=== PATIENT | male | born 1990 | race American Indian/Alaskan Native ===

== ENCOUNTER 2016-09-07 07:51 | Emergency (ER) | payer OTHER ==
[2016-09-07 08:01] VITALS: BMI 27.3
[2016-09-07] MEDS ORDERED: Emtricitabine-Tenofovir 200 mg-300 mg Tab PO STA (08:02)
--- NOTE | 2016-09-07 08:10 | ED PDOC ---
Arrival/HPI - General Chief Complaint: Needle Stick Time Seen by Provider: 09/07/16 07:55 Historian: Patient - History of Present Illness Narrative History of Present Illness (Text): 09/07/16 08:06 A 25 year old male, who denies any past medical history, was sent into the emergency department by [employer] [facility] for further evaluation concerning needlestick injury. 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 Patient denies any fever, chills, nausea, vomiting, diarrhea, abdominal pain, chest pain, shortness of breath or any other complaints. Time/Duration: Other (This morning at 05:30) Quality: Other Context: Work Past Medical History - Provider Review Nursing Documentation Reviewed: Yes Family/Social History - Physician Review Nursing Documentation Reviewed: Yes Family/Social History: No Known Family HX Allergies/Home Meds Allergies/Adverse Reactions: Allergies shellfish derived Allergy (Verified 09/07/16 08:01) ANAPHYLAXIS Review of Systems - Physician Review All systems were reviewed & negative as marked: Yes - Review of Systems Constitutional: absent: Fevers, Night Sweats Respiratory: absent: SOB Cardiovascular: absent: Chest Pain Gastrointestinal: absent: Abdominal Pain, Diarrhea, Nausea, Vomiting Musculoskeletal: Other (needlestick injury to right index finger) Physical Exam Vital Signs Reviewed: Yes Vital Signs Temp Pulse Resp BP Pulse Ox 09/07/16 08:02 98 F 72 18 116/85 98 Temperature: Afebrile Blood Pressure: Normal Pulse: Regular Respiratory Rate: Normal Appearance: Positive for: Well-Appearing, Non-Toxic, Comfortable Pain Distress: None Mental Status: Positive for: Alert and Oriented X 3 - Systems Exam Head: Present: Atraumatic, Normocephalic Pupils: Present: PERRL Extroacular Muscles: Present: EOMI Conjunctiva: Present: Normal Upper Extremity: Present: NORMAL PULSES, Neurovascularly Intact, Other (small abrasion on right index finger, no active bleeding). No: Cyanosis, Edema, Temperature Abnormalties Neurological: Present: GCS=15, CN II-XII Intact, Speech Normal Skin: Present: Warm, Dry, Normal Color. No: Rashes Psychiatric: Present: Alert, Oriented x 3, Normal Insight, Normal Concentration Medical Decision Making ED Course and Treatment: 09/07/16 08:06 Impression: A 25 year old male sent in for a needlestick evaluation. Plan: -- Labs -- Urinalysis -- Truvada and Isentress -- Reassess and disposition Progress Notes: - Lab Interpretations Lab Results: 09/07/16 08:00 09/07/16 08:00 Lab Results 09/07/16 08:00: HIV-1 Ab Rapid Screen Non reactive 09/07/16 08:00: RPR Titer 1:2 H, RPR Reactive H 09/07/16 08:00: Hep Bs Antibody Positive 09/07/16 08:00: Hepatitis A IgM Ab Negative, Hep Bs Antigen Negative, Hep B Core IgM Ab Negative, Hepatitis C Antibody Negative 09/07/16 08:00: Sodium 141, Potassium 4.1, Chloride 103, Carbon Dioxide 26, Anion Gap 16, BUN 13, Creatinine 1.0, Est GFR ( Amer) > 60, Est GFR (Non- Af Amer) > 60, Random Glucose 88, Calcium 9.8, Total Bilirubin 0.7, AST 41, ALT 48, Alkaline Phosphatase 76, Total Protein 8.6 H, Albumin 4.9 H, Globulin 3.7, Albumin/Globulin Ratio 1.3, Amylase 97 09/07/16 08:00: WBC 7.2, RBC 5.31, Hgb 14.9, Hct 43.8, MCV 82.5, MCH 28.1, MCHC 34.0, RDW 12.6, Plt Count 238, MPV 9.5, Gran % 55.0, Lymph % (Auto) 32.7, [place] % (Auto) 8.4 H, Eos % (Auto) 3.6, Baso % (Auto) 0.3, Gran # 3.98, Lymph # 2.4, [place] # 0.6, Eos # 0.3, Baso # 0.02 - Medication Orders Current Medication Orders: Discontinued Medications Emtricitabine/Tenofovir (Truvada 200 Mg-300 Mg) 1 tab PO STAT STA Stop: 09/07/16 08:03 Last Admin: 09/07/16 08:36 Dose: 1 tab Raltegravir (Isentress) 400 mg PO STAT STA Stop: 09/07/16 08:05 Last Admin: 09/07/16 08:36 Dose: 400 mg - Scribe Statement The provider has reviewed the documentation as recorded by the Flory Shaw Provider Scribe Attestation: All medical record entries made by the Scribe were at my direction and personally dictated by me. I have reviewed the chart and agree that the record accurately reflects my personal performance of the history, physical exam, medical decision making, and the department course for this patient. I have also personally directed, reviewed, and agree with the discharge instructions and disposition. Disposition/Present on Arrival - Present on Arrival Any Indicators Present on Arrival: No - Disposition Have Diagnosis and Disposition been Completed?: Yes Diagnosis: Needle stick injury Disposition: HOME/ ROUTINE Disposition Time: 08:15 Condition: GOOD Discharge Instructions (ExitCare): Needle Stick Injuries (ED) Additional Instructions: Thank you for letting us take care of you today. Your provider was Dr. Gamboa. You were treated for a needle stick. The emergency medical care you received today was directed at your acute symptoms. If you were prescribed any medication, please fill it and take as directed. It may take several days for your symptoms to resolve. Return to the Emergency Department if your symptoms worsen, do not improve, or if you have any other problems. Please contact your doctor or call one of the physicians/clinics you have been referred to that are listed on the Patient Visit Information form that is included in your discharge packet. Bring any paperwork you were given at discharge with you along with any medications you are taking to your follow up visit. Our treatment cannot replace ongoing medical care by a primary care provider (PCP) outside of the emergency department. Thank you for allowing the [facility] team to be part of your care today. [facility] with [facility] tomorrow morning as instructed. Prescriptions: Emtricitabine/Tenofovir (Tdf) [Truvada 200 mg-300 mg Tablet] 1 each PO DAILY #3 tablet Raltegravir Potassium [Isentress] 400 mg PO BID #6 tab [facility] [[facility] Care Provider] - Follow up with primary
[2016-09-07 08:25] VITALS: BP 116/85; PULSE 72; RESP 18; TEMP 98; O2SAT 98
[2016-09-07 08:27] LABS: BASO # 0.02 K/mm3 (0.0-2.0); BASO % 0.3 % (0.0-3.0); EOS # 0.3 (0.0-0.7); EOS % 3.6 % (1.5-5.0); GRAN # 3.98 (1.4-6.5); HEMOGLOBIN 14.9 gm/dL (14.0-18.0); LYMPH # 2.4 (1.2-3.4); LYMPH % 32.7 % (22.0-35.0); MEAN CELL VOLUME 82.5 fL (80.0-105.0); MEAN CORPUSCULAR HEMOGLOBIN 28.1 pg (25.0-35.0); MEAN PLATELET VOLUME 9.5 fl (7.0-11.0); MONO # 0.6 (0.1-0.6); MONO % 8.4 % (1.0-6.0); PLATELET COUNT 238 10^3/uL (120.0-450.0); RBC 5.31 10^6/uL (3.5-6.1); RED CELL DISTRIBUTION WIDTH 12.6 % (11.5-14.5); WHITE BLOOD COUNT 7.2 10^3/ul (4.5-11.0)
[2016-09-07 08:37] LABS: ALB/GLOB RATIO 1.3 (1.1-1.8); ALBUMIN 4.9 g/dL (3.0-4.8); ALT/SGPT 48 U/L (7-56); AMYLASE 97 U/L (35-125); AST/SGOT 41 U/L (15-59); BLOOD UREA NITROGEN 13 mg/dL (7-21); CALCIUM 9.8 mg/dL (8.4-10.5); GFR AFRICAN-AMERICAN > 60; GFR NON-AFRICAN AMERICAN > 60
[2016-09-07 12:11] LABS: HEPATITIS B SURFACE AG NEGATIVE (NEGATIVE)
[2016-09-07 12:16] LABS: HEPATITIS A IGM NEGATIVE (NEGATIVE)
[2016-09-07 12:17] LABS: HEPATITIS B CORE AB NEGATIVE (NEGATIVE)
[2016-09-07 12:28] LABS: HEPATITIS C ANTIBODY NEGATIVE (NEGATIVE)
[2016-09-07 16:24] LABS: RAPID PLASMA REAGIN REACTIVE (NONREACTIVE)
== END 2016-09-07 08:40 | disposition home or self-care (01) ==
LOC: ED 07:51
DX: S61.230A Puncture wound without foreign body of right index finger without damage to nail, initial encounter (principal); W46.0XXA Contact with hypodermic needle, initial encounter; Y93.F9 Activity, other caregiving; Y92.238 Other place in hospital as the place of occurrence of the external cause; Y99.0 Civilian activity done for income or pay

== ENCOUNTER 2018-04-19 07:53 | Emergency (ER) | payer OTHER ==
[2018-04-19 08:03] VITALS: BMI 24.7
[2018-04-19 08:12] VITALS: BP 117/83; PULSE 59; RESP 18; TEMP 98.2; O2SAT 100
--- NOTE | 2018-04-19 08:35 | ED PDOC ---
Arrival/HPI - General Chief Complaint: ENT Problem Time Seen by Provider: 04/19/18 07:58 Historian: Patient - History of Present Illness Narrative History of Present Illness (Text): 04/19/18 08:33 27 year old male, with no significant past medical history presents to the emergency department complaining of left ear pain since yesterday. Patient states their is a throbbing pain in his left ear. He notes temporary relief with Tylenol, but states after a couple of hours the throbbing pain returns. He denies fevers, chills, headache, dizziness, chest pain, shortness of breath, dyspnea on exertion, cough, abdominal pain, nausea, vomiting, diarrhea, back pain, neck pain, or any other complaint. Past Medical History - Provider Review Nursing Documentation Reviewed: Yes - Psychiatric Hx Substance Use: No Family/Social History - Physician Review Nursing Documentation Reviewed: Yes Family/Social History: No Known Family HX Smoking Status: Never Smoked Hx Alcohol Use: No Hx Substance Use: No Allergies/Home Meds Allergies/Adverse Reactions: Allergies shellfish derived Allergy (Verified 04/19/18 08:28) ANAPHYLAXIS Review of Systems - Physician Review All systems were reviewed & negative as marked: Yes - Review of Systems Constitutional: absent: Fevers ENT: Other (left ear throbbing pain) Respiratory: absent: SOB, Cough Cardiovascular: absent: Chest Pain Gastrointestinal: absent: Abdominal Pain, Vomiting Musculoskeletal: absent: Back Pain, Neck Pain Neurological: absent: Headache, Dizziness Physical Exam - Physical Exam Narrative Physical Exam (Text): 04/19/18 08:32 Gen: VS reviewed, alert, well developed, well nourished, nontoxic, mild distress. ENT: normal pharynx. serous otitis media. Eye: EOMI, PERRL. Neck: no JVD, supple, no adenopathy. Ext: no edema. Skin: good color, no rash, no cyanosis. Psych: responds appropriately to questions, normal affect. Neuro: oriented x 3, CN2-12 intact grossly, motor intact, sensation intact. Vital Signs Reviewed: Yes Vital Signs Temp Pulse Resp BP Pulse Ox 04/19/18 07:55 98.2 F 59 L 18 117/83 100 Temperature: Afebrile Blood Pressure: Normal Pulse: Regular Respiratory Rate: Normal Appearance: Positive for: Well-Appearing, Non-Toxic, Comfortable Pain Distress: None Mental Status: Positive for: Alert and Oriented X 3 Medical Decision Making ED Course and Treatment: 04/19/18 08:32 Impression: 27 year old male who presents to the emergency department complaining of left ear pain. Plan: -- Reassess and disposition Prior Visits: Notes and results from previous visits were reviewed. Progress Notes: 04/20/18 17:00 patient was seen for left ear pain. a serous otitis media was observed in the left and since there was pain i opted to treat for acute otitis media. there was no abnormal intraoral lesions, there was no mastoid tenderness. - Scribe Statement The provider has reviewed the documentation as recorded by the Scribe Shell Zelaya Provider Scribe Attestation: All medical record entries made by the Scribe were at my direction and personally dictated by me. I have reviewed the chart and agree that the record accurately reflects my personal performance of the history, physical exam, medical decision making, and the department course for this patient. I have also personally directed, reviewed, and agree with the discharge instructions and disposition. Disposition/Present on Arrival - Present on Arrival Any Indicators Present on Arrival: No History of DVT/PE: No History of Uncontrolled Diabetes: No Urinary Catheter: No History of Decub. Ulcer: No History Surgical Site Infection Following: None - Disposition Have Diagnosis and Disposition been Completed?: Yes Diagnosis: Otitis media Disposition: HOME/ ROUTINE Disposition Time: 17:12 Patient Plan: Discharge Condition: STABLE Discharge Instructions (ExitCare): Ear Infections (Otitis Media) Additional Instructions: follow up with a ear, nose, throat doctor if symptoms persist or worsen. Prescriptions: RX: Amoxicillin 1,000 mg PO Q8H 7 Days #21 tablet RX: Ibuprofen [Motrin Tab] 600 mg PO QID #30 tab Referrals: Erlin Galarza MD [Medical Doctor] - Follow up with primary Forms: [employer] ([place])
== END 2018-04-19 09:10 | disposition home or self-care (01) ==
LOC: ED 07:53
DX: H66.92 Otitis media, unspecified, left ear (principal)